=== PATIENT | male | born 1965 | race Two or more races ===

== ENCOUNTER 2020-11-21 09:02 | Inpatient (IN) | payer BC ==
[~2020-11-21] VITALS: Ht 172.7 cm; Wt 89.8 kg
[2020-11-21] MEDS ORDERED: AZITHROMYCIN 500 MG in DEXT 5% WATER 250 ML IV ONE (09:15)
[2020-11-21] MEDS ORDERED: PIPERACILLIN/TAZ 3.375G PREMIX 50 ML IV ONE (09:15)
[2020-11-21] MEDS ORDERED: VANCOMYCIN 1 G PREMIX 200 ML IV ONE (09:15)
[2020-11-21] MEDS ORDERED: SODIUM CHLORIDE 0.9% 1000ML BAG (SEPSIS BOLUS) IV ONE (09:15)
[2020-11-21 09:54] LABS: CHLORIDE 105 mEq/L (98-107)
[2020-11-21 09:55] LABS: HEMATOCRIT. 49.3 % (42.0-52.0); HEMOGLOBIN. 17.1 g/dL (14.0-18.0); MEAN CORPUSCULAR VOLUME 89.4 fL (80.0-94.0); PLATELET 267 x1000/uL (130-400); RED BLOOD CELL COUNT 5.51 mill/uL (4.7-6.1)
[2020-11-21 11:28] LABS: PLATELET ESTIMATE NORMAL
[2020-11-21] MEDS ORDERED: METHYLPREDNISOLONE SOD SUCC 125 MG/2 ML VIAL IV ONE (12:00)
[2020-11-21] MEDS ORDERED: ACETAMINOPHEN 325MG TABLET PO PRN ×2 (14:15)
[2020-11-21] MEDS ORDERED: LORAZEPAM 0.5MG TABLET PO PRN (14:15)
[2020-11-21] MEDS ORDERED: CLONIDINE 0.1MG TABLET PO PRN (14:15)
[2020-11-21] MEDS ORDERED: DOCUSATE SODIUM 100MG CAPSULE PO PRN (14:15)
[2020-11-21] MEDS ORDERED: HYDROCODONE/ACETAMINOPHEN 5/325MG TABLET PO PRN (14:15)
[2020-11-21] MEDS ORDERED: ONDANSETRON HCL 4MG/2ML INJ IV PRN (14:15)
[2020-11-21] MEDS: AMLODIPINE 5MG TABLET PO SCH (14:57)
[2020-11-21] MEDS ORDERED: ENOXAPARIN 40MG/0.4ML SYR SUBCUT SCH (15:00)
[2020-11-21] MEDS ORDERED: CEFTRIAXONE 1 G PREMIX 50 ML IV SCH (15:00)
[2020-11-21 16:20] LABS: BG BASE EXCESS -2.3 mmol/L (-2.0-2.0); BG CARBOXYHEMOGLOBIN 0.6 % (0.5-1.5); BG DEOXYHEMOGLOBIN 2.7 % (0.0-5.0); BG FRACTION INSPIRED OXYGEN 36; BG HCO3 ACT 20.8 mmol/L (22.0-26.0); BG METHEMOGLOBIN 0.2 % (0.0-1.5); BG OXYGEN SATURATION 97.3 % (92.0-98.5); BG OXYHEMOGLOBIN 96.5 % (94.0-97.0); BG PCO2 31.5 mmHg (35.0-45.0); BG PH 7.437 (7.350-7.450); BG PO2 92.2 mmHg (75.0-100.0); BG SAMPLE SITE RIGHT RADIAL; BG TOTAL HEMOGLOBIN 15.8 g/dL (12.0-18.0); BG VENT MODE NASAL CANNULA
[2020-11-21] MEDS ORDERED: ERGOCALCIFEROL 50000UNITS CAPSULE PO SCH (22:30)
[2020-11-21] MEDS: ASPIRIN 81MG EC TABLET PO SCH (23:34)
[2020-11-22 04:33] LABS: BASOPHILS % 0.4 % (0.0-2.0); HEMATOCRIT. 43.5 % (42.0-52.0); HEMOGLOBIN. 15.1 g/dL (14.0-18.0); LYMPHOCYTES % 8.1 % (20.0-50.0); MEAN CORPUSCULAR VOLUME 89.4 fL (80.0-94.0); MEAN PLATELET VOLUME 7.1 fl (7.4-10.4); MONOCYTES % 5.1 % (2.0-8.0); NEUTROPHILS % 86.4 % (40.0-76.0); PLATELET 277 x1000/uL (130-400); RED BLOOD CELL COUNT 4.86 mill/uL (4.7-6.1); RED CELL DISTRIBUTION WIDTH 12.3 % (11.6-14.6)
[2020-11-22 04:48] LABS: CHLORIDE 107 mEq/L (98-107)
[2020-11-22 04:59] LABS: PHOSPHORUS 2.8 mg/dL (2.5-4.9)
[2020-11-22 05:00] LABS: LDL CHOLESTEROL 50 mg/dL (5-100)
[2020-11-22 05:02] LABS: HDL CHOLESTEROL 31 mg/dL (40-59)
[2020-11-22 08:00] VITALS: BP 171/100
[2020-11-22] MEDS: ASCORBIC ACID 500 MG TABLET PO SCH ×2 (09:00→20:30)
[2020-11-22] MEDS: DEXAMETHASONE 10 MG/ML VIAL IV SCH (10:19)
[2020-11-22] MEDS: ASPIRIN 81MG EC TABLET PO SCH (10:20)
[2020-11-22] MEDS: ZINC SULFATE 220 MG ( 50 ) CAPSULE PO SCH (10:20)
[2020-11-22] MEDS: AMLODIPINE 5MG TABLET PO SCH ×3 (10:20→18:41)
[2020-11-22] MEDS ORDERED: AZITHROMYCIN 500 MG in DEXT 5% WATER 250 ML IV SCH (12:00)
[2020-11-22] MEDS: ENOXAPARIN 40MG/0.4ML SYR SUBCUT SCH (14:16)
[2020-11-22] MEDS: CEFTRIAXONE 1,000 MG in DEXTROSE 5% WATER 50 ML IV SCH (14:16)
[2020-11-22 20:00] VITALS: BP 140/90
[2020-11-22] MEDS: FAMOTIDINE 20MG TABLET PO SCH (20:30)
[2020-11-23] VITALS: BP 127/81
[2020-11-23 04:00] VITALS: BP 152/81
[2020-11-23 05:21] LABS: T4 FREE 1.39 ng/dL (0.76-1.46)
[2020-11-23 08:00] VITALS: BP 114/78
[2020-11-23] MEDS: ASPIRIN 81MG EC TABLET PO SCH (10:47)
[2020-11-23] MEDS: ENOXAPARIN 40MG/0.4ML SYR SUBCUT SCH (10:47)
[2020-11-23] MEDS: ASCORBIC ACID 500 MG TABLET PO SCH ×2 (10:47→21:09)
[2020-11-23] MEDS: AMLODIPINE 5MG TABLET PO SCH ×2 (10:47→18:42)
[2020-11-23] MEDS: ZINC SULFATE 220 MG ( 50 ) CAPSULE PO SCH (10:47)
[2020-11-23] MEDS: AZITHROMYCIN 500 MG in DEXT 5% WATER 250 ML IV SCH (10:48)
[2020-11-23] MEDS: DEXAMETHASONE 10 MG/ML VIAL IV SCH (10:48)
[2020-11-23 12:00] VITALS: BP 124/80
[2020-11-23] MEDS: CEFTRIAXONE 1,000 MG in DEXTROSE 5% WATER 50 ML IV SCH (14:23)
[2020-11-23 16:00] VITALS: BP 147/95
[2020-11-23 20:00] VITALS: BP 145/89
[2020-11-23] MEDS: FAMOTIDINE 20MG TABLET PO SCH (21:09)
[2020-11-24] VITALS: BP 129/75
[2020-11-24 04:00] VITALS: BP 142/85
[2020-11-24] MEDS: DEXAMETHASONE 10 MG/ML VIAL IV SCH (09:41)
[2020-11-24] MEDS: AZITHROMYCIN 500 MG in DEXT 5% WATER 250 ML IV SCH (09:41)
[2020-11-24] MEDS: ASPIRIN 81MG EC TABLET PO SCH (09:42)
[2020-11-24] MEDS: ZINC SULFATE 220 MG ( 50 ) CAPSULE PO SCH (09:42)
[2020-11-24] MEDS: ENOXAPARIN 40MG/0.4ML SYR SUBCUT SCH (09:42)
[2020-11-24] MEDS: AMLODIPINE 5MG TABLET PO SCH (09:42)
[2020-11-24] MEDS: ASCORBIC ACID 500 MG TABLET PO SCH (09:42)
[2020-11-24] MEDS ORDERED: AZIT500T8 PO (13:30)
[2020-11-24] MEDS ORDERED: ASPI-1406 PO (13:30)
[2020-11-24] MEDS ORDERED: AMLO5TAB88 PO (13:30)
[2020-11-24] MEDS ORDERED: FAMO20TA8 PO (13:30)
[2020-11-24] MEDS ORDERED: DEXA6TAB MT (13:30)
[2020-11-24] MEDS: CEFTRIAXONE 1,000 MG in DEXTROSE 5% WATER 50 ML IV SCH (14:50)
[2020-11-24 16:02] VITALS: BP 145/87
[2020-11-25] MEDS ORDERED: AZITHROMYCIN 500 MG TABLET PO SCH (09:00)
== END 2020-11-24 17:00 | disposition home or self-care (01) | DRG 871 ==
LOC: ER 09:18 → MICUSO 11:58 → 8WST 11-22 08:36
PROVIDERS: ADMIT Internal Medicine; ATTEND Internal Medicine
DX: A41.89 Other specified sepsis (principal); U07.1 COVID-19; J12.82 Pneumonia due to coronavirus disease 2019; J96.01 Acute respiratory failure with hypoxia; I16.0 Hypertensive urgency; D72.810 Lymphocytopenia; I10 Essential (primary) hypertension; R74.01 Elevation of levels of liver transaminase levels; Z79.899 Other long term (current) drug therapy
CPT/HCPCS: 36415; 36600; 71045; 80048; 80053; 80061; 80076; 82375; 82728; 82805; 83036; 83605; 83615; 83735; 83880; 84100; 84145; 84439; 84443; 84481; 84484; 85025; 85379; 86140; 86850; 86900; 93005; 99285; J0456; J0696; J1100; J1650; J2543; J2930; J3370; J7030; J7040; J7060; U0003